=== PATIENT | female | born 1995 | race Hispanic/Latino ===

== ENCOUNTER 2019-03-13 14:10 | Emergency (ER) | payer SELFPAY ==
[2019-03-13] MEDS ORDERED: TETANUS & DIPHTHERIA TOX,ADULT 0.5 ML VIAL ONE (15:21)
--- NOTE | 2019-03-13 15:43 | ER ---
Nurse's Notes [facility] Name: Jenifer Allen Age: 24 yrs Sex: Female : 1995 Arrival Date: 03/13/2019 Time: 14:30 Bed 11 Private MD: Diagnosis: Laceration of the Right Hand Presentation: 03/13 14:31 Presenting complaint: Hand went through a window last night, to top of right hb hand noted. Not bleeding at this time. Transition of care: patient was not received from another setting of care. Complicating Factors: There are no complicating factors for this patient. Onset of symptoms was March 12, 2019 at 22:00. Risk Assessment: Do you want to hurt yourself or someone else? Patient reports no desire to harm self or others. Initial Sepsis Screen: Does the patient meet any 2 criteria? No. Patient's initial sepsis screen is negative. Does the patient have a suspected source of infection? No. Patient's initial sepsis screen is negative. Care prior to arrival: Medication(s) given: Motrin at 1400. 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 - Social history:: Smoking status: Patient/guardian denies using tobacco. - Ebola Screening: : No symptoms or risks identified at this time. Screenin:50 Abuse screen: Denies threats or abuse. Denies injuries from another. Nutritional ss screening: No deficits noted. Tuberculosis screening: Never had TB. Fall Risk None identified. Assessment: 14:45 General: Appears in no apparent distress. comfortable, Behavior is calm, cooperative. ss Pain: Complains of pain in dorsum of right hand Pain currently is 3 out of 10 on a pain scale. Quality of pain is described as tender, Pain began yesterday evening at 2200 Is continuous. Neuro: Level of Consciousness is awake, alert, obeys commands. Respiratory: Airway is patent Respiratory effort is even, unlabored, Respiratory pattern is regular, symmetrical. EENT: Nares are clear. Derm: Skin is intact, is healthy with good turgor, Skin is dry, Skin is pink, warm \T\ dry. normal. Musculoskeletal: Circulation, motion, and sensation intact. Range of motion: intact in all extremities, Swelling absent. Injury Description: Laceration sustained to dorsum of right hand is 0.5 to 2.5 cm long, was sustained 12-24 hours ago. is bleeding no active bleeding noted. 15:50 Reassessment: Patient appears in no apparent distress at this time. Patient and/or ss family updated on plan of care and expected duration. Pain level reassessed. Patient is alert, oriented x 3, equal unlabored respirations, skin warm/dry/pink. Vital Signs: 14:33 BP 119 / 76; Pulse 72; Resp 16; Temp 97.8; Pulse Ox 100% on R/A; Weight 67.13 kg; hb Height 5 ft. 3 in. (160.02 cm); Pain 3/10; 14:33 Body Mass Index 26.22 (67.13 kg, 160.02 cm) hb ED Course: 14:30 Patient arrived in ED. hb 14:32 Triage completed. hb 14:33 Arm band placed on. hb 14:34 Denilson Steward PA is PHCP. [facility] 14:34 Parminder Walker MD is Attending Physician. jmm 14:45 Patient has correct armband on for positive identification. Bed in low position. Call ss light in reach. 15:17 Krystin Hugo, PATRICIA is Primary Nurse. ss 15:46 No provider procedures requiring assistance completed. Patient did not have IV access ss during this emergency room visit. Wound care: to laceration. 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 Exp: ss 09/01/2020. Lot #: [id number]. } Route: IM; Site: left deltoid; Outcome: 15:39 Discharge ordered by . [facility] 15:50 Discharged to home ambulatory. ss 15:50 Condition: good 15:50 Discharge instructions given to patient, Instructed on discharge instructions, follow up and referral plans. wound care, Demonstrated understanding of instructions, follow-up care, wound care. 16:06 Patient left the ED. ss Signatures: Denilson Steward PA PA jmm Smirch, Shelby, RN RN Rayna Salazar RN RN Corrections: (The following items were deleted from the chart) 16:05 15:50 Patient has correct armband on for positive identification. Bed in low position. Call light in reach. 16:05 15:50 Pulse ox on. NIBP on. [facility]
--- NOTE | 2019-03-13 15:43 | EDPHYS ---
Physician Documentation [facility] Name: Jenifer Allen Age: 24 yrs Sex: Female : 1995 Arrival Date: 03/13/2019 Time: 14:30 Bed 11 Private MD: ED Physician Parminder Walker HPI: 03/13 14:55 This 24 yrs old Female presents to ER via Ambulatory with complaints of jmm Laceration To Hand. 14:55 The patient has a laceration patient states injuring her right hand last night at 10 jmm pm. cut on a window she was attempting to open. unsure on tetanus immunization. Onset: The symptoms/episode began/occurred acutely, last night. The patient has not experienced similar symptoms in the past. 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 - Social history:: Smoking status: Patient/guardian denies using tobacco. - Ebola Screening: : No symptoms or risks identified at this time. ROS: 14:55 Constitutional: Negative for fever, chills, and weight loss, Cardiovascular: Negative jmm for chest pain, palpitations, and edema, Respiratory: Negative for shortness of breath, cough, wheezing, and pleuritic chest pain. 14:55 Skin: Positive for laceration(s). 14:55 All other systems are negative. Exam: 14:55 Constitutional: This is a well developed, well nourished patient who is awake, alert, jmm and in no acute distress. Head/Face: atraumatic. Eyes: EOMI, no conjunctival erythema appreciated ENT: Moist Mucus Membranes Neck: Trachea midline, Supple Chest/axilla: Normal chest wall appearance and motion. Cardiovascular: Regular rate and rhythm. No edema appreciated Respiratory: Normal respirations, no respiratory distress appreciated Abdomen/GI: Non distended, soft Back: Normal ROM 14:55 Skin: 3 cm laceration noted to the dorsal surface of the right hand. 14:55 Neuro: Orientation: is normal, Mentation: is normal, Memory: is normal. 14:55 Psych: Behavior/mood is pleasant, cooperative. Vital Signs: 14:33 BP 119 / 76; Pulse 72; Resp 16; Temp 97.8; Pulse Ox 100% on R/A; Weight 67.13 kg; hb Height 5 ft. 3 in. (160.02 cm); Pain 3/10; 14:33 Body Mass Index 26.22 (67.13 kg, 160.02 cm) hb MDM: 14:55 Patient medically screened. [facility] 15:37 Data reviewed: vital signs, nurses notes. ED course: right hand cleaned, closed with irma steristrips. unable to suture due to the length of time since injury. patient is advised to return to the ED if fever increased swelling beginning. . 12 15:14 Order name: Wound Care; Complete Time: 15:17 ara Administered Medications: 15:24 Drug: Tetanus-Diphtheria Toxoid Adult 0.5 ml {Psychologist Developmental: [employer]. Exp: ss 09/01/2020. Lot #: [id number]. } Route: IM; Site: left deltoid; Disposition: 18:47 Co-signature as Attending Physician, Parminder Walker MD I agree with the assessment and [facility] plan of care. Disposition: 03/13/19 15:39 Discharged to Home. Impression: Laceration of the Right Hand. - Condition is Stable. - Discharge Instructions: Nonsutured Laceration Care. - Medication Reconciliation Form, Thank You Letter, Antibiotic Education, Prescription Opioid Use form. - Follow up: Private Physician; When: 2 - 3 days; Reason: Recheck today's complaints, Continuance of care, Re-evaluation by your physician. Signatures: Parminder Walker MD MD cha Mickail, Joel, PA PA jmm Smirch, Shelby, RN RN Rayna Salazar, PATRICIA RN Corrections: (The following items were deleted from the chart) 16:06 15:39 03/13/2019 15:39 Discharged to Home. Impression: Laceration of the Right Hand. Condition is Stable. Forms are Medication Reconciliation Form, Thank You Letter, Antibiotic Education, Prescription Opioid Use. Follow up: Private Physician; When: 2 - 3 days; Reason: Recheck today's complaints, Continuance of care, Re-evaluation by your physician. irma
[2019-03-13 17:54] VITALS: BP 119/76; TEMP 97.8; O2SAT 100
== END 2019-03-13 16:06 | disposition home or self-care (01) ==
LOC: ER 14:10
DX: S61.411A Laceration without foreign body of right hand, initial encounter (principal); W25.XXXA Contact with sharp glass, initial encounter; Y93.89 Activity, other specified; Y92.9 Unspecified place or not applicable; Z23 Encounter for immunization
CPT/HCPCS: 90471; 90714; 99283

== ENCOUNTER 2020-01-26 19:14 | Emergency (ER) | payer SELFPAY ==
--- OUTSIDE RECORDS SUMMARY | 2020-01-26 19:15 | XMS REPORT | Clinical Summary ---
:1995 Author Organization [facility] Address [address] [place] [address] Care Team Providers Name Role Phone Unavailable Primary Care Provider Unavailable Allergies Not on File Medications Not on file Active Problems Not on file Social History Tobacco Use Types Packs/Day Years Used Date Never Assessed Sex Assigned at Date Recorded Not on file Last Filed Vital Signs Not on file Plan of Treatment Not on file Results Not on fileafter 01/25/2019
--- NOTE | 2020-01-26 20:39 | RAD REPORT ---
EXAM DESCRIPTION: Prasanth Single View01/26/2020 8:23 pm CLINICAL HISTORY: Chest pain COMPARISON: none FINDINGS: The lungs appear clear of acute infiltrate. The heart is normal size IMPRESSION: No acute abnormalities displayed
[2020-01-26] MEDS ORDERED: HYDROCODONE/APAP 10/325 TAB ONE (20:46)
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
[2020-01-26 21:52] VITALS: TEMP 98.4; O2SAT 100
[2020-01-26 21:54] VITALS: BP 112/83
== END 2020-01-26 21:03 | disposition home or self-care (01) ==
LOC: ER 19:14
DX: R07.9 Chest pain, unspecified (principal); F31.9 Bipolar disorder, unspecified
CPT/HCPCS: 71045; 99284

== ENCOUNTER 2020-12-03 10:55 | Emergency (ER) | payer SELFPAY ==
--- OUTSIDE RECORDS SUMMARY | 2020-12-03 10:58 | XMS REPORT | Continuity of Care Document ---
:1995 Author Organization [facility] t Address [address] [place] [address] Care Team Providers Name Role Phone Unavailable Unavailable Unavailable Problems This patient has no known problems. Allergies, Adverse Reactions, Alerts This patient has no known allergies or adverse reactions. Social History Social Habit Start Date Stop Date Quantity Comments Source Sex Assigned At [facility] Medications This patient has no known medications. Procedures This patient has no known procedures. Results This patient has no known results.
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
--- NOTE | 2020-12-03 13:10 | RAD REPORT ---
EXAM DESCRIPTION: RAD - Knee Right 3 View - 12/03/2020 12:39 pm CLINICAL HISTORY: PAIN, no traumatic event detailed COMPARISON: No comparisons FINDINGS: No fracture, dislocation or periosteal reaction.No joint effusion seen. No joint space nitin rowing. No foreign body or other soft tissue abnormality. IMPRESSION: Negative right knee. Clinical concerns for internal derangement or occult bony injury could be further assessed with MR im aging.
[2020-12-03 13:13] VITALS: BP 128/93; TEMP 98.7; O2SAT 99
== END 2020-12-03 13:07 | disposition home or self-care (01) ==
LOC: ER 10:55
DX: M25.561 Pain in right knee (principal)
CPT/HCPCS: 99283